=== PATIENT | female | born 1985 | race Caucasian/White ===

== ENCOUNTER 2017-11-16 22:01 | Emergency (ER) | payer OTHER ==
[~2017-11-16] VITALS: Ht 160 cm; Wt 49.9 kg
[2017-11-16] MEDS ORDERED: KETO10TA2 PO (23:33)
[2017-11-16] MEDS ORDERED: INTESTINEX680 M1 PO (23:33)
[2017-11-16] MEDS ORDERED: CLINDAMYCIN HC300 MG PO (23:33)
[2017-11-16] MEDS ORDERED: MUPIROCIN15 GM TOP (23:33)
== END 2017-11-16 23:48 | disposition home or self-care (01) ==
LOC: ER 22:01
DX: L03.116 Cellulitis of left lower limb (principal)